=== PATIENT | female | born 1975 | race Caucasian/White ===

== ENCOUNTER 2021-11-19 09:29 | Emergency (ER) | payer MEDICAID, SELFPAY ==
[2021-11-19 09:30] VITALS: BP 200/109; PULSE 97; RESP 16; TEMP 36.6; O2SAT 99; BMI 19.5
--- NOTE | 2021-11-19 09:43 | EX.ED.UPPERE ---
HPI <MARCELLA Lora - Last Filed: 11/19/21 09:48> History of Present Illness Chief Complaint: Upper Extremity Injury Narrative Narrative: 46-year-old female presents to the emergency department with complaints of left shoulder pain. Patient states that 4 days ago, she was lifting some at work, had some pain, then moved her dresser in her room, Monday evening she had severe pain to her left shoulder. Patient states that work, she is having trouble doing her daily duties secondary to her left shoulder pain. Patient denies any fall, patient denies any numbness or tingling down her left arm. Patient has pain to the anterior shoulder, worse with abduction abduction PFSH <MARCELLA Lora Last Filed: 11/19/21 09:48> [facility] Home Medications naproxen [Naprosyn] 500 mg PO BID PRN #20 tab 11/19/21 [Rx Last Taken Unknown] Allergy/AdvReac Type Severity Reaction Status Date / Time No Known Allergies Allergy Verified 11/19/21 09:32 ROS <MARCELLA Lora Last Filed: 11/19/21 09:48> ROS ED ROS Narrative Constitutional: Negative for fever, chills, weight loss, weakness Eyes: Negative for vision loss, vision change, double vision ENT: Negative for any sore throat, ear pain, congestion Cardiovascular: Negative for any chest pain, tightness, palpitations Respiratory: Negative for any cough, sputum production, hemoptysis, dyspnea, dyspnea on exertion, orthopnea Gastrointestinal: Negative for any abdominal pain, nausea, vomiting, diarrhea, constipation, blood in stool, blood in vomit : Negative for any urinary frequency, dysuria, retention, blood in urine Muscle skeletal: Negative for any muscle joint pain, stiffness, myalgias, arthralgias, neck pain, back pain. Positive for left shoulder Neurological: Negative for any headache, syncope, numbness or tingling, dizziness Skin: Negative for any rashes, lumps, itching, abrasions, lacerations Psychiatric: Negative for any depression, anxiety, stress, suicidal ideation, homicidal ideation Hematologic: Negative for any easy bruising, excessive bruising, easy bleeding Allergies: Negative for any eczema, hives, rash EXAM <MARCELLA Lora Last Filed: 11/19/21 09:48> Physical Exam Narrative Exam Narrative: Vital signs reviewed. Extremities: No deformity to left shoulder, patient does have pain to palpation to the anterior aspect, she is able to extend, flex. She has increased pain with abduction, abduction. +2 radial pulse, patient has no neurological focal deficit. Consistent with a muscle skeletal strain Neuro: Cranial nerves II through XII intact, no focal neurological deficits. Skin: Clean dry and intact with no rash, purpura, petechiae, vesicles or pustules. Backs/flank: No CVA tenderness, no midline spinal tenderness, no deformity. Psych: Normal mood and affect. No SI, HI or acute psychosis. Const Vital Signs: 11/19/21 09:30 Temperature 97.8 F Temperature Source Temporal Pulse Rate 97 Respiratory Rate 16 Blood Pressure 200/109 H Blood Pressure Mean 139 Pulse Ox 99 Oxygen Delivery Method Room Air Positive well nourished and well developed General Appearance ED: well developed MDM <MARCELLA Lora - Last Filed: 11/19/21 09:48> [facility] Narrative Medical decision making narrative: Patient appears well, patient appears nontoxic, vital signs are stable. Patient presents to the emergency department left shoulder strain. Patient's physical examination is consistent with a muscle skeletal strain, negative for any neurological focal deficits. Patient be treated with naproxen here, given prescription for home. She will be written 2 days off of work, instructed to follow-up with her PCP. Instructed to perform daily range of motion exercise as well as ice and heat. Patient will be diagnosed with 1. left shoulder strain. Lab Data Attestation: I reviewed the patient's lab results. <Dr. Jorge A Ocasio MD - Last Filed: 11/19/21 10:07> [facility] Narrative Medical decision making narrative: I have personally performed a face to face assessment of the patient and have reviewed the NESTOR Note. I performed a substantive portion of the visit including all aspects of the following. My interiano findings include: History is [46-year-old female evaluated with our nurse practitioner. Patient lifted up a container chili weight about 30 pounds since that time has had pain in her left posterior shoulder. Denies any fall or trauma. No other complaints.] Exam is [middle-aged female no acute distress. Vital signs stable. Afebrile. History and exam consistent with a left shoulder strain with muscle spasm. Tender over the trapezius. No bony deformity. Lungs are clear. Heart regular rhythm. Left hand neurovascularly intact.] Medical Decision Making [patient treated as a muscle strain. Treated with Naprosyn. Hot shower, warm bath massage. Follow-up if not improving.] Other additions or changes: [None] Discharge Plan Triage Chief Complaint: Upper Extremity Injury ED Midlevel Provider: Jack Mendoza ED Provider: Jorge A Ocasio Dx/Rx/DC Orders Clinical Impression: Left shoulder strain Instructions: ED Muscle Strain, Extremity Prescriptions: New naproxen [Naprosyn] 500 mg tablet 500 mg PO BID PRN (Reason: pain) Qty: 20 RF: 0 Stand Alone Forms: ED Work / School Excuse Primary Care Provider: Care Physician,No Primary Referrals: Laly Oliveira MD [STAFF PHYSICIAN] - NOT,DEFINED [NON-STAFF] - Activity Restrictions/Additional Instructions: Please perform range of motion exercises, ice, heat. Use anti-inflammatories. You may also use Tylenol. Print Language: Lao Disposition Disposition: Home, Self Care
[2021-11-19] MEDS: Naproxen 250 MG Tablet 500 MG PO (10:10)
[2021-11-19 10:14] VITALS: RESP 16
== END 2021-11-19 10:14 | disposition home or self-care (01) ==
PROVIDERS: Emergency Provider Emergency Medicine; Visit Provider Emergency Medicine
DX: S46.912A Strain of unspecified muscle, fascia and tendon at shoulder and upper arm level, left arm, initial encounter (principal); X58.XXXA Exposure to other specified factors, initial encounter
CPT/HCPCS: 99283